=== PATIENT | male | born 1985 | race American Indian/Alaskan Native ===

== ENCOUNTER 2018-08-27 03:05 | Inpatient (IN) | payer MEDICAID ==
[2018-08-27 03:05] VITALS: BMI 24.2
--- NOTE | 2018-08-27 03:54 | ED PDOC ---
HPI: Psych/Substance Abuse Time Seen by Provider: 08/27/18 03:17 Chief Complaint (Nursing): Psychiatric Evaluation Chief Complaint (Provider): Psychiatric Evaluation History Per: Patient History/Exam Limitations: no limitations Onset/Duration Of Symptoms: Days (x1) Current Symptoms Are (Timing): Still Present Suicide/Self Injury Attempted (Context): None Additional Complaint(s): 32 year old male with pmHx of depression and bipolar disorder, arrives to ED via EMS for an evaluation after expressing suicidal ideation prior to arrival. Patient was discharged twice from [facility] within the last 12 hours, subsequently, states that he wanted to go to another hospital to speak to a different workers compensation analyst. He denies any specific plan at this time. PCP: none provided Past Medical History Reviewed: Historical Data, Nursing Documentation, Vital Signs Vital Signs: Last Vital Signs Temp 98 F 08/27/18 03:17 Pulse 69 08/27/18 03:17 Resp 16 08/27/18 03:17 BP 133/98 H 08/27/18 03:17 Pulse Ox 98 08/27/18 03:17 - Medical History PMH: Bipolar Disorder, Depression, Seizures Denies: Diabetes, Hepatitis, HIV, HTN, Chronic Kidney Disease, Sexually Transmitted Disease - Family History Family History: States: Unknown Family Hx - Immunization History Hx Tetanus Toxoid Vaccination: No Hx Influenza Vaccination: No Hx Pneumococcal Vaccination: No - Home Medications Home Medications: Ambulatory Orders Medication Instructions Recorded hydrOXYzine Pamoate [Vistaril] 25 mg PO BID PRN #30 cap 08/26/18 - Allergies Allergies/Adverse Reactions: Allergies Allergy/AdvReac Type Severity Reaction Status Date / Time No Known Allergies Allergy Verified 08/27/18 03:19 Review of Systems ROS Statement: Except As Marked, All Systems Reviewed And Found Negative Psych: Positive for: Depression, Suicidal ideation Physical Exam - Reviewed Nursing Documentation Reviewed: Yes Vital Signs Reviewed: Yes - Physical Exam Appears: Positive for: Well, Non-toxic, No Acute Distress Head Exam: Positive for: ATRAUMATIC, NORMAL INSPECTION, NORMOCEPHALIC Skin: Positive for: Normal Color Eye Exam: Positive for: Normal appearance ENT: Positive for: Normal ENT Inspection Neck: Positive for: Normal Cardiovascular/Chest: Positive for: Regular Rate, Rhythm Respiratory: Positive for: Normal Breath Sounds. Negative for: Respiratory Distress Neurologic/Psych: Positive for: Alert, Oriented, Mood/Affect (flat) - ECG O2 Sat by Pulse Oximetry: 98 (RA) Pulse Ox Interpretation: Normal Medical Decision Making Medical Decision Making: Initial Impression: 32 year old male with suicidal ideation in setting of known depression. Initial Plan: * Labs * Crisis evaluation * 1:1 OBS Patient evaluated by crisis and will be admitted Dx Depression Fair Patient s/o Dr Weldon to follow up on labs for medical clearance Scribe Attestation: Documented by Oneida Medel, acting as a scribe for Eddie Grier MD. Provider Scribe Attestation: All medical record entries made by the Scribe were at my direction and personally dictated by me. I have reviewed the chart and agree that the record accurately reflects my personal performance of the history, physical exam, medical decision making, and the department course for this patient. I have also personally directed, reviewed, and agree with the discharge instructions and disposition. Disposition - Clinical Impression Clinical Impression: Depression - Disposition Disposition: Transfer of Care Disposition Time: 07:00 Condition: FAIR Forms: [employer] (Nepali) Patient Signed Over To: Itzel Weldon
--- NOTE | 2018-08-27 07:04 | ED PDOC ---
- Laboratory Results Result Diagrams: 08/27/18 06:50 08/27/18 06:50 - ECG ECG Rhythm: Positive for: Normal QRS, Normal ST Segment, Sinus Rhythm (normal at 73bpm) O2 Sat by Pulse Oximetry: 98 (RA) Medical Decision Making Medical Decision Makin Patient care endorsed from Dr. Grier to this provider pending labs, CXR results, and reevaluation. [id number] CXR FINDINGS: LUNGS: No active pulmonary disease. PLEURA: No significant pleural effusion identified, no pneumothorax apparent. CARDIOVASCULAR: No aortic atherosclerotic calcification present. Normal cardiac size. No pulmonary vascular congestion. OSSEOUS STRUCTURES: No significant abnormalities. VISUALIZED UPPER ABDOMEN: Normal. OTHER FINDINGS: None. IMPRESSION: No acute cardiopulmonary disease appreciated. Scribe Attestation: Documented by Jimena Gerard, acting as a scribe for Yusef Weldon MD. Provider Scribe Attestation: All medical record entries made by the Scribe were at my direction and personal ly dictated by me. I have reviewed the chart and agree that the record accurately reflects my personal performance of the history, physical exam, medical decision making, and the department course for this patient. I have also personally directed, reviewed, and agree with the discharge instructions and disposition. Disposition Doctor Will See Patient In The: Hospital - Clinical Impression Clinical Impression: Depression, Bipolar 1 disorder - POA Present On Arrival: None - Disposition Disposition: Transfer of Care Disposition Time: 09:00 Condition: FAIR Forms: [employer] (Scottish)
--- NOTE | 2018-08-27 08:03 | RAD ---
Date of service: 08/27/2018 HISTORY: admit COMPARISON: No prior. FINDINGS: LUNGS: No active pulmonary disease. PLEURA: No significant pleural effusion identified, no pneumothorax apparent. CARDIOVASCULAR: No aortic atherosclerotic calcification present. Normal cardiac size. No pulmonary vascular congestion. OSSEOUS STRUCTURES: No significant abnormalities. VISUALIZED UPPER ABDOMEN: Normal. OTHER FINDINGS: None. IMPRESSION: No acute cardiopulmonary disease appreciated.
[2018-08-27 08:22] LABS: BASO % 0.6 % (0.0-2.0); EOS # 0.1 K/uL (0.0-0.7); EOS % 3.7 % (0.0-4.0); HEMOGLOBIN 13.3 g/dL (12.0-18.0); LYMPH # 1.9 K/uL (1.0-4.3); LYMPH % 53.3 % (20.0-40.0); MEAN CORPUSCULAR HEMOGLOBIN 32.4 pg (27.0-31.0); MEAN CORPUSCULAR HGB CONC 33.4 g/dL (33.0-37.0); MEAN PLATELET VOLUME 8.5 fl (7.2-11.7); MONO # 0.4 K/uL (0.0-0.8); MONO % 11.3 % (0.0-10.0); NEUT # 1.1 K/uL (1.8-7.0); NEUT % 31.1 % (50.0-75.0); NRBC % 0.1 % (0.0-0.0); RBC 4.11 Mil/uL (4.40-5.90); RED CELL DISTRIBUTION WIDTH 13.9 % (11.5-14.5); WHITE BLOOD COUNT 3.5 K/uL (4.8-10.8)
[2018-08-27 08:28] LABS: ALB/GLOB RATIO 1.3 (1.0-2.1); ALBUMIN 3.9 g/dL (3.5-5.0); ALT/SGPT 33 U/L (21-72); AST/SGOT 43 U/L (17-59); BLOOD UREA NITROGEN 14 mg/dl (9-20); CALCIUM 8.8 mg/dL (8.4-10.2); GFR NON-AFRICAN AMERICAN > 60
[2018-08-27 08:41] LABS: BARBITURATES, UR NEGATIVE (NEGATIVE); BENZODIAZEPINES, UR POSITIVE (NEGATIVE)
[2018-08-27 08:43] LABS: OPIATES, UR NEGATIVE (NEGATIVE); PHENCYCLIDINE, UR POSITIVE (NEGATIVE)
[2018-08-27 10:36] VITALS: O2SAT 99
[2018-08-27] MEDS ORDERED: DiphenhydrAMINE 50 mg/ml Inj IM PRN (11:46)
[2018-08-27] MEDS ORDERED: Alum-Mag Hydrox-Simethicone Susp (30 mL) PO PRN (11:46)
[2018-08-27] MEDS ORDERED: Magnesium Hydroxide Susp 30 ml UD PO PRN (11:46)
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
--- NOTE | 2018-08-27 15:46 | CP.PCM.CON ---
History of Present Illness - History of Present Illness History of Present Illness: 32 yo male with history of Bipolar DO and multiple substance abuse admitted to psyche unit because of suicidal ideation. Review of Systems - Review of Systems All systems: reviewed and no additional remarkable complaints except (aside from those mentioned above, 12 point system review were negative by me) Past Patient History - Infectious Disease Hx of Infectious Diseases: None - Tetanus Immunizations Tetanus Immunization: Unknown - Past Social History Smoking Status: Heavy Smoker > 10 Cigarettes Daily Chewing Tobacco Use: No Cigar Use: No Drugs: Cannabis, Cocaine, Opiates, Methamphetamine - CARDIAC Hx Cardiac Disorders: No - PULMONARY Hx Respiratory Disorders: No - NEUROLOGICAL Hx Neurological Disorder: No - HEENT Hx HEENT Problems: No - RENAL Hx Chronic Kidney Disease: No - ENDOCRINE/METABOLIC Hx Endocrine Disorders: No - HEMATOLOGICAL/ONCOLOGICAL Hx Blood Disorders: No - INTEGUMENTARY Hx Dermatological Problems: No - MUSCULOSKELETAL/RHEUMATOLOGICAL Hx Musculoskeletal Disorders: No - GASTROINTESTINAL Hx Gastrointestinal Disorders: No - GENITOURINARY/GYNECOLOGICAL Hx Genitourinary Disorders: No - PSYCHIATRIC Hx Psychophysiologic Disorder: Yes - SURGICAL HISTORY Hx Surgeries: Yes Other/Comment: RIGHT LEG / SURGERY - ANESTHESIA Hx Anesthesia: Yes Hx Anesthesia Reactions: No Meds Allergies/Adverse Reactions: Allergies Allergy/AdvReac Type Severity Reaction Status Date / Time No Known Allergies Allergy Verified 08/27/18 03:19 - Medications Medications: Current Medications Acetaminophen (Tylenol 325mg Tab) 650 mg PO Q4 PRN PRN Reason: Pain, moderate (4-7) Al Hydrox/Mg Hydrox/Simethicone (Maalox Plus 30 Ml) 30 ml PO Q4 PRN PRN Reason: Dyspepsia Diphenhydramine HCl (Benadryl) 50 mg IM Q6 PRN PRN Reason: Extrapyramidal S/S Unable PO Diphenhydramine HCl (Benadryl) 50 mg PO Q6 PRN PRN Reason: Extrapyramidal Symptoms Divalproex Sodium (Depakote Dr(*Bid*)) 500 mg PO BID LAVELL Gabapentin (Neurontin) 100 mg PO TID LAVELL Last Admin: 08/27/18 15:38 Dose: 100 mg Haloperidol (Haldol) 5 mg PO Q4 PRN PRN Reason: Agitation Haloperidol Lactate (Haldol) 5 mg IM Q4 PRN PRN Reason: Agitation, Unable to Take PO Lorazepam (Ativan) 2 mg IM Q4 PRN PRN Reason: Anxiety/Agitation,Unable PO Lorazepam (Ativan) 1 mg PO Q8 PRN PRN Reason: Anxiety/Agitation Magnesium Hydroxide (Milk Of Magnesia) 30 ml PO HS PRN PRN Reason: Constipation Quetiapine Fumarate (Seroquel) 50 mg PO BID LAVELL Quetiapine Fumarate (Seroquel) 100 mg PO HS LAVELL Physical Exam - Constitutional Appears: No Acute Distress - Head Exam Head Exam: ATRAUMATIC - Eye Exam Eye Exam: absent: Scleral icterus - ENT Exam ENT Exam: Mucous Membranes Moist - Neck Exam Neck exam: Negative for: Meningismus - Respiratory Exam Respiratory Exam: absent: Rales, Rhonchi, Wheezes, Respiratory Distress - Cardiovascular Exam Cardiovascular Exam: REGULAR RHYTHM, +S1, +S2 - GI/Abdominal Exam GI & Abdominal Exam: Soft. absent: Tenderness - Rectal Exam Rectal Exam: Deferred - Extremities Exam Extremities exam: Negative for: pedal edema - Back Exam Back exam: NORMAL INSPECTION - Neurological Exam Neurological exam: Alert, Oriented x3 - Psychiatric Exam Psychiatric exam: Normal Affect - Skin Skin Exam: Dry, Intact Results - Vital Signs Recent Vital Signs: Last Vital Signs Temp 98.2 F 08/27/18 10:33 Pulse 79 08/27/18 10:33 Resp 18 08/27/18 10:33 BP 141/91 H 08/27/18 10:33 Pulse Ox 99 08/27/18 10:33 - Labs Result Diagrams: 08/27/18 06:50 08/27/18 06:50 Labs: Laboratory Results - last 24 hr 08/27/18 08/27/18 08/27/18 06:50 06:50 07:37 WBC 3.5 L RBC 4.11 L Hgb 13.3 Hct 39.8 MCV 97.0 H MCH 32.4 H MCHC 33.4 RDW 13.9 Plt Count 205 MPV 8.5 Neut % (Auto) 31.1 L Lymph % (Auto) 53.3 H [place] % (Auto) 11.3 H Eos % (Auto) 3.7 Baso % (Auto) 0.6 Neut # (Auto) 1.1 L Lymph # (Auto) 1.9 [place] # (Auto) 0.4 Eos # (Auto) 0.1 Baso # (Auto) 0.0 Sodium 141 Potassium 3.7 Chloride 107 Carbon Dioxide 28 Anion Gap 10 BUN 14 Creatinine 0.9 Est GFR ( Amer) > 60 Est GFR (Non-Af Amer) > 60 Random Glucose 89 Calcium 8.8 Total Bilirubin 0.9 AST 43 ALT 33 Alkaline Phosphatase 68 Total Protein 6.9 Albumin 3.9 Globulin 3.0 Albumin/Globulin Ratio 1.3 Urine Opiates Screen Negative Urine Methadone Screen Negative Ur Barbiturates Screen Negative Ur Phencyclidine Scrn Positive H Ur Amphetamines Screen Positive H U Benzodiazepines Scrn Positive U Oth Cocaine Metabols Negative U Cannabinoids Screen Positive H Alcohol, Quantitative < 10 Assessment & Plan (1) Suicidal ideation Status: Acute Comment: psyche is managing
[2018-08-27] MEDS: Divalproex 500 mg DR(BID formulation) PO SCH (19:29)
--- NOTE | 2018-08-27 19:32 | PCM.BM ---
<Carter Cohn Praneeth - Last Filed: 08/27/18 19:29> Treatment Plan Problems - Problems identified on initial assessmt medication nonadherence Assessment reference: NA Status: Active high risk: injury Date Initiated: 08/27/18 Time Initiated: 17:00 Assessment reference: NA Status: Active Altered Thought Process Date Initiated: 08/27/18 Time Initiated: 17:00 Assessment reference: NA Status: Active Treatment assets and liabiliti Patient Assests: cooperative, educated, self-reliant, ADL independent, physically healthy, negotiates basic needs, cognitively intact Patient Liabilities: live alone, poor support system - Milieu Protocol Maintain good personal hygiene: every shift Encourage regular showers, every shift Remind patient to perform daily oral care, every shift Assist patient to perform ADL's Maintain personal safety: every shift Educate patient to report safety concerns to staff, every shift Monitor environment for contraband/sharps Medication safety: Monitor for expected outcome, potential side effects: every shift, Assess barriers to learning: every shift, Assess readiness for medication education: every shift Milieu Narrative: start seroquel 50mg bid and 100mg qhs increase gradually start depakote 500mg bid neurontin 100mg tid for anxiety motivational , group and supportive therapy Discharge/Continuing Care - Treatment Team Participation Patient/Family/SO Statement: start seroquel 50mg bid and 100mg qhs increase gradually start depakote 500mg bid neurontin 100mg tid for anxiety motivational , group and supportive therapy <Dulce Maria Srivastava - Last Filed: 08/31/18 14:20> Treatment assets and liabiliti Patient Assests: resourceful, self-reliant, ADL independent, physically healthy, negotiates basic needs Patient Liabilities: live alone ( Pt. reports residing with mother prior to admission. Pt. evasive and irritable when asked if he is welcome to return. Pt. has hx of multiple periods of homelessness, as per medical records.), poor support system (Pt. reports poor family/social supports. Pt. reports having a circumstantially supportive relationship with aunt. Pt. reports having 6 children with who pt. denies having a relationship/communication.), relationship conflicts (Pt. reports discord with cousin, explaining he cant mind his own sh*t and is always in mine. ), substance abuse (Pt. reports hx of/current illicit substance abuse (ecstasy-weekends/recreationally, PCP- weekends/recreationally, ETOH-2-3x/week, cannabis-daily). Pt. presents as a poor historian and evasive when providing collateral regarding polysubstance abuse hx and tx.), legal issue ( Pt. reports being incarcerated for about 7 years in total. Pt. denies outstanding legal issues.) Family Contact Family involvement: Famliy/SO not involved Family contact: Patient declines to allow family contact at present - Goals for Treatment Patient goals for treatment: Patient to continue stabilization on 3NP through medication management and group/supportive therapy to address sxs of psychosis (paranoia disorganized thought process, social withdrawal, internal preoccupation), and eliminate SI/HI. Patient to be encouraged to attend groups regularly to promote self-awareness, sobriety, and improve insight, compliance, coping skills and self-esteem. Patient to be provided with referral for appropriate level of aftercare to reduce risk of future hospitalizations and ensure safety in the community. Pt. presented as irritable and required significant engagement from tx team to participate in discussion regarding tx goals. Pt. identified tx goal as being kept away from him cousin. Discharge/Continuing Care - Education Needs Education Needs: Patient Medication, Patient Diagnosis/Disease Process, Patient Coping Skills, Patient Anger Management skills, Patient Community resources, Patient Aftercare Safety Plan - Discharge Discharge Criteria: Tolerates medication w/o severe side effects, Free of Suicidal thoughts, Free of Homicidal thoughts, Free of paranoid thoughts, Free of agitation, Normal sleep pattern, No longer exhibiting s/s of withdrawal, Reduction of target symptoms Discharge to:: With Family, Care Home - Treatment Team Participation Patient/Family/SO Statement: 08/31/18 14:23 Patient attended tx team on 08/30 to discuss progress on 3NP and aftercare. Pt. continued to present with sxs of psychosis as exhibited by paranoia, internal preoccupation, and delusional thought process. Pt. continued to express belief that cousin is in a relationship with pts childrens mother, prohibiting pt. from seeing his children. Pt. reported I feel like doing something to him and his kids. Why does he get to see his kids and I dont? Speech: pressured. Pt. presented as disorganized, with loosened associations, and ideas of reference. Pt. reported being able to hear peoples conversations being had in different building/different floors and hearing peoples thoughts when under the influence of ecstasy/PCP. Insight/Coping skills/Judgment grossly impaired. Pt. presented as irritable and required significant engagement from tx team to participate in discussion regarding tx goals. Pt. identified tx goal as being kept away from him cousin. Recommended medication regimen discussed at length. Pt. agreeable. Discussed with Family/SO: No Was Patient/Family/SO present at Treatment Team Meeting: Yes <Brenton Smith - Last Filed: 08/31/18 14:49> - Diagnosis (1) Bipolar 1 disorder Status: Acute Interventions: pharmacotheray/ mood stabilizer 08/31/18 14:47 (2) Stimulant abuse Status: Acute Interventions: 08/31/18 14:48 motivational therapy
--- NOTE | 2018-08-27 20:44 | CARD ---
APPROVED REPORT Date of service: 08/27/2018 EKG Measurement Heart [id number] MD [id number] <Conclusion> Normal sinus rhythm Left ventricular hypertrophy with QRS widening Abnormal ECG
[2018-08-28 08:51] LABS: T4 5.24 ug/dl (5.5-11.0)
--- NOTE | 2018-08-28 10:25 | PCM.PYCHPN ---
Psychiatric Progress Note - Psychiatric Progress Note Patient seen today, length of contact: Pt evaluated, case discussed w/ team, chart reviewed Patient Chief Complaint: "I'm having thoughts of hurting my nephew." Problems Identified/Issues Discussed: Patient continues to report feeling depressed/anxious w/ ideations to harm his nephew w/o any specific plan. He denies acute ideation to harm himself. He reports feeling fatigued and has sleep disturbances. No adverse effects to medications reported. Medication Change: No Medical Record Reviewed: Yes Consults ordered or reviewed: Medicine consult Mental Status Examination - Cognitive Function Orientation: Person, Place, Situation, Time Memory: Intact Fund of Knowledge: [facility] Decription of patient's judgement and insights: Poor I/J - Mood Mood: Depressed, Anxious - Affect Affect: Constricted - Formal Thought Process Formal Thought Process: Paranoia Psychotic Thoughts and Behaviors: Denies acute AH/VH - Suicidal Ideation Suicidal Ideation: No - Homicidal Ideation Homicidal Ideation: Yes Plan: Ideation to harm others Goal/Treatment Plan - Goal/Treatment Plan Need for Continued Stay: Remain at risks for inpatient hospitalization, Severe depression anxiety, Discharge may exacerbated symptoms Progress Toward Problem(s) and Goals/Treatment Plan: Substance induced psychotic disorder; Substance induced mood disorder vs Bipolar I disorder; Amphetamine abuse; PCP abuse; Cannabis abuse -Continue Depakote 500 mg PO BID -Continue Neurontin 100 mg PO TID -Continue Seroquel 50 mg PO BID/ 100 mg PO HS -Medicine consult -Individual and group therapy -Psychoeducation -Disposition planning
[2018-08-28] MEDS: Divalproex 500 mg DR(BID formulation) PO SCH ×3 (14:12→18:15)
--- NOTE | 2018-08-29 09:53 | PCM.PYCHPN ---
Psychiatric Progress Note - Psychiatric Progress Note Patient seen today, length of contact: Pt evaluated, case discussed w/ team, chart reviewed Patient Chief Complaint: "I'm having thoughts of hurting my cousin." Problems Identified/Issues Discussed: Patient continues to report feeling depressed w/ homicidal ideation towards his cousin because he feels like his cousin is trying to manipulate him and the mother of his child. He reports feeling fatigued during the day and thinks it may be due to the seroquel. He denies acute AH/VH/SI. Medication Change: Yes (Increase Seroquel and change to HS) Medical Record Reviewed: Yes Consults ordered or reviewed: Medicine consult Mental Status Examination - Cognitive Function Orientation: Person, Place, Situation, Time Memory: Intact Fund of Knowledge: [facility] Decription of patient's judgement and insights: Poor I/J - Mood Mood: Depressed, Anxious - Affect Affect: Constricted - Formal Thought Process Formal Thought Process: Paranoia Psychotic Thoughts and Behaviors: +Paranoia - Suicidal Ideation Suicidal Ideation: No - Homicidal Ideation Homicidal Ideation: Yes Goal/Treatment Plan - Goal/Treatment Plan Need for Continued Stay: Remain at risks for inpatient hospitalization, Severe depression anxiety, Discharge may exacerbated symptoms Progress Toward Problem(s) and Goals/Treatment Plan: Substance induced psychotic disorder; Substance induced mood disorder vs Bipolar I disorder; Amphetamine abuse; PCP abuse; Cannabis abuse -Continue Depakote 500 mg PO BID -Continue Neurontin 100 mg PO TID -Increase Seroquel to 250 mg PO HS -Medicine consult -Individual and group therapy -Psychoeducation -Disposition planning
[2018-08-29] MEDS: Divalproex 500 mg DR(BID formulation) PO SCH ×2 (12:55→17:32)
--- NOTE | 2018-08-30 15:19 | PCM.PYCHPN ---
Psychiatric Progress Note - Psychiatric Progress Note Patient seen today, length of contact: Pt evaluated, case discussed w/ team, chart reviewed Patient Chief Complaint: I still hear my cousin with my and I want to hurt him Problems Identified/Issues Discussed: pt evaluated with treatment team, floridly psychotic, disorganized speech, expressing delusions of persecution towards family members continues to report non command auditory hallucinations and expressing homicidal threats towards his cousin, discussed with pt increasing dose of depakote and starting risperidone pt denied command hallucinations, denied active thoughts of self harm on the unit Medical Problems: about three inpatient hospitalizations, history of non compliance DSM 5 Symptoms Update: bipolar disorder pcp/ amphetamine induced psychosis Medication Change: Yes (start risperidone ) Medical Record Reviewed: Yes Mental Status Examination - Cognitive Function Orientation: Person, Place, Situation, Time Memory: Intact Attention: Poor Concentration: Poor Association: Loose Fund of Knowledge: Poor - Mood Mood: Depressed, Anxious - Affect Affect: Constricted Additional comments: angry - Speech Speech: Pressured - Formal Thought Process Formal Thought Process: Hallucinations, Delusions, Paranoia - Suicidal Ideation Suicidal Ideation: No - Homicidal Ideation Homicidal Ideation: Yes Goal/Treatment Plan - Goal/Treatment Plan Need for Continued Stay: Remain at risks for inpatient hospitalization, Severe depression anxiety, Discharge may exacerbated symptoms Progress Toward Problem(s) and Goals/Treatment Plan: risperidone 3mg daily increase depakote 1500mg daily neurontin 100mg tid for anxiety motivational , group and supportive therapy
[2018-08-30] MEDS: Divalproex 500 mg DR(BID formulation) PO SCH (21:04)
[2018-08-31] MEDS: Divalproex 500 mg DR(BID formulation) PO SCH ×2 (10:17→21:08)
--- NOTE | 2018-08-31 14:58 | PCM.PYCHPN ---
Psychiatric Progress Note - Psychiatric Progress Note Patient seen today, length of contact: Pt evaluated, case discussed w/ team, chart reviewed Patient Chief Complaint: I try to stay in my room so I do not get angry at anybody Problems Identified/Issues Discussed: pt evaluated seen in bed , angry mood , irritable affect, pt continues to report feeling angry because of the infidelity of his cousin with his girlfriend, reported partial clearing of the auditory hallucinations, thought process continues to be tangential with over productive speech, discussed increasing risperidone no reported side effects pt denied command hallucinations, denied active thoughts of self harm on the unit Medical Problems: about three inpatient hospitalizations, history of non compliance Medication Change: Yes (increase risperidone ) Medical Record Reviewed: Yes Mental Status Examination - Cognitive Function Orientation: Person, Place, Situation, Time Memory: Intact Attention: Poor Concentration: Poor Association: Loose Fund of Knowledge: Poor - Mood Mood: Depressed, Anxious - Affect Affect: Constricted - Speech Speech: Pressured - Formal Thought Process Formal Thought Process: Hallucinations, Delusions, Paranoia - Suicidal Ideation Suicidal Ideation: No - Homicidal Ideation Homicidal Ideation: Yes Goal/Treatment Plan - Goal/Treatment Plan Need for Continued Stay: Remain at risks for inpatient hospitalization, Severe depression anxiety, Discharge may exacerbated symptoms Progress Toward Problem(s) and Goals/Treatment Plan: risperidone increase 4 mg daily depakote 1500mg daily , follow up on depakote level neurontin 100mg tid for anxiety motivational , group and supportive therapy
[2018-09-01] MEDS: Divalproex 500 mg DR(BID formulation) PO SCH ×2 (09:56→21:01)
--- NOTE | 2018-09-01 14:49 | PCM.PYCHPN ---
Psychiatric Progress Note - Psychiatric Progress Note Patient seen today, length of contact: Pt evaluated, case discussed w/ team, chart reviewed Patient Chief Complaint: I need help so I would not hurt anybody Problems Identified/Issues Discussed: pt evaluated seen in bed ,speech less pressured, thought process circumstantial, at times not goal directed continues to express anger towards his cousin and girlfriend , discussed with pt the need to start anger management therapy, also discussed the need for substance rehab program, pt reported partial clearing of the auditory hallucinations, pt denied command hallucinations, denied active thoughts of self harm on the unit Medical Problems: about three inpatient hospitalizations, history of non compliance DSM 5 Symptoms Update: schizoaffective disorder amphetamine abuse PCP abuse Medication Change: Yes (increase risperidone ) Medical Record Reviewed: Yes Mental Status Examination - Cognitive Function Orientation: Person, Place, Situation, Time Memory: Intact Attention: Poor Concentration: Poor Association: Loose Fund of Knowledge: Poor - Mood Mood: Depressed, Anxious - Affect Affect: Constricted - Speech Speech: Pressured - Formal Thought Process Formal Thought Process: Hallucinations, Delusions, Paranoia - Suicidal Ideation Suicidal Ideation: No - Homicidal Ideation Homicidal Ideation: Yes Goal/Treatment Plan - Goal/Treatment Plan Need for Continued Stay: Remain at risks for inpatient hospitalization, Severe depression anxiety, Discharge may exacerbated symptoms Progress Toward Problem(s) and Goals/Treatment Plan: increase risperidone increase 2 mg daily and 3mg qhs depakote 1500mg daily , follow up on depakote level neurontin 100mg tid for anxiety motivational , group and supportive therapy
[2018-09-02] MEDS: Divalproex 500 mg DR(BID formulation) PO SCH (08:53)
--- NOTE | 2018-09-02 15:40 | PCM.PYCHPN ---
Psychiatric Progress Note - Psychiatric Progress Note Patient seen today, length of contact: Pt evaluated, case discussed w/ team, chart reviewed Patient Chief Complaint: I am trying to stay away from trouble Problems Identified/Issues Discussed: pt evaluated , , more engaged in treatment , seen attending groups, speech less pressured , thought process continues to be circumstantial, pt reported partial clearing of the auditory hallucinations, continues to have mood swings, denied side effects of medications pt denied command hallucinations, denied active thoughts of self harm on the unit Medical Problems: about three inpatient hospitalizations, history of non compliance Medication Change: Yes (decrease depakote ) Medical Record Reviewed: Yes Mental Status Examination - Cognitive Function Orientation: Person, Place, Situation, Time Memory: Intact Attention: WNL Concentration: Poor Association: Loose Fund of Knowledge: Poor Decription of patient's judgement and insights: poor insight and judgment - Mood Mood: Anxious - Affect Affect: Constricted - Speech Speech: Pressured - Formal Thought Process Formal Thought Process: Hallucinations, Delusions, Paranoia - Suicidal Ideation Suicidal Ideation: No - Homicidal Ideation Homicidal Ideation: No Goal/Treatment Plan - Goal/Treatment Plan Need for Continued Stay: Remain at risks for inpatient hospitalization, Severe depression anxiety, Discharge may exacerbated symptoms Progress Toward Problem(s) and Goals/Treatment Plan: increase risperidone 2 mg daily and 3mg qhs decrease depakote 1000mg daily , depakote level 119 neurontin 100mg tid for anxiety motivational , group and supportive therapy
[2018-09-02] MEDS: Divalproex 250 mg DR(BID formulation) PO SCH (21:04)
[2018-09-03] MEDS: Divalproex 250 mg DR(BID formulation) PO SCH ×2 (09:43→21:08)
--- NOTE | 2018-09-03 15:42 | PCM.PYCHPN ---
Psychiatric Progress Note - Psychiatric Progress Note Patient seen today, length of contact: Pt evaluated, case discussed w/ team, chart reviewed Patient Chief Complaint: I want to leave Problems Identified/Issues Discussed: pt evaluated , , edgy and irritable, requesting to be discharged, pt continues to have disorganized speech ad thought process, continues to report auditory hallucinations , pt has limited insight into his illness , signed 48 hour notice Medical Problems: about three inpatient hospitalizations, history of non compliance DSM 5 Symptoms Update: schizoaffective disorder PCP use disorder Medication Change: No Medical Record Reviewed: Yes Mental Status Examination - Cognitive Function Orientation: Person, Place, Situation, Time Memory: Intact Attention: WNL Concentration: Poor Association: Loose Fund of Knowledge: Poor Decription of patient's judgement and insights: poor insight and judgment - Mood Mood: Anxious - Affect Affect: Constricted - Speech Speech: Pressured - Formal Thought Process Formal Thought Process: Hallucinations, Delusions, Paranoia - Suicidal Ideation Suicidal Ideation: No - Homicidal Ideation Homicidal Ideation: No Goal/Treatment Plan - Goal/Treatment Plan Need for Continued Stay: Remain at risks for inpatient hospitalization, Severe depression anxiety, Discharge may exacerbated symptoms Progress Toward Problem(s) and Goals/Treatment Plan: pt continues to be disorganized , psychotic internally preoccupied , signed 48 hour notice requesting to be discharged, no insight into illness , pt will be screened for involuntary admission risperidone 2 mg daily and 3mg qhs depakote 1000mg daily , qhs neurontin 100mg tid for anxiety motivational , group and supportive therapy
[2018-09-03 18:45] LABS: SQUAMOUS EPITHIAL < 1 /hpf (0-5); URINE BILIRUBIN NEGATIVE (NEGATIVE); URINE BLOOD NEGATIVE (NEGATIVE); URINE CLARITY CLEAR (Clear); URINE COLOR YELLOW (YELLOW); URINE GLUCOSE (UA) NEG (NEGATIVE); URINE LEUKOCYTE ESTERASE NEG Leu/uL (Negative); URINE PROTEIN NEGATIVE (NEGATIVE); URINE UROBILINOGEN 0.2-1.0 mg/dL (0.2-1.0)
[2018-09-04] MEDS: Divalproex 250 mg DR(BID formulation) PO SCH (09:16)
[2018-09-04 10:16] VITALS: TEMP 97.2
--- NOTE | 2018-09-04 15:50 | PCM.PYCHPN ---
Psychiatric Progress Note - Psychiatric Progress Note Patient seen today, length of contact: Pt evaluated, case discussed w/ team, chart reviewed Patient Chief Complaint: pt has remained very disorganized and cant keep his conversation and internally preoccupied and remains with poor insight and poor judgement and signed 48 hr letter and wants to leave the hospital. Medication Change: No Medical Record Reviewed: Yes Mental Status Examination - Cognitive Function Orientation: Person, Place, Situation, Time Memory: Intact Attention: WNL Concentration: Poor Association: Loose Fund of Knowledge: Poor - Mood Mood: Anxious - Affect Affect: Constricted - Speech Speech: Pressured - Formal Thought Process Formal Thought Process: Hallucinations, Delusions, Paranoia - Suicidal Ideation Suicidal Ideation: No - Homicidal Ideation Homicidal Ideation: No Goal/Treatment Plan - Goal/Treatment Plan Need for Continued Stay: Remain at risks for inpatient hospitalization, Severe depression anxiety, Discharge may exacerbated symptoms Progress Toward Problem(s) and Goals/Treatment Plan: pt has remained very disorganized ,unable to take care of self,still hallucination and remains a threat to self and others and need inpt psych stabilization.pt can not be d/c home and as he is not willing to stay here longer ,will refer him again to [facility] for rescreening for involuntary admission to [facility].
[2018-09-04 16:41] VITALS: BP 122/90; PULSE 102; RESP 20
[2018-09-04] MEDS ORDERED: Divalproex 500 mg DR(BID formulation) PO SCH (22:00)
[2018-09-05] MEDS: Divalproex 250 mg DR(BID formulation) PO SCH (10:00)
--- NOTE | 2018-09-05 11:47 | PCM.PYCHPN ---
Psychiatric Progress Note - Psychiatric Progress Note Patient seen today, length of contact: Pt evaluated, case discussed w/ team, chart reviewed Patient Chief Complaint: pt has been less irritible and less anxious and denies any hallucinations but still with limited insight regarding his h/o noncompliance with meds and substance abuse and still requesting d/c based on 48 hr notice which expires today and was screened twice by [facility] and found not commitable and will be d/c home against medical advised and informed about all the risks of AMA d/c and pt signed AMA d/c .pt denies suicidal ideation and no agitation and no psychosis .no sedation noted tiday. Medication Change: No Medical Record Reviewed: Yes Mental Status Examination - Cognitive Function Orientation: Person, Place, Situation, Time Memory: Intact Attention: Poor Concentration: Poor Association: WNL Fund of Knowledge: WNL - Mood Mood: Anxious - Affect Affect: Other - Speech Speech: Appropriate - Formal Thought Process Formal Thought Process: No Impairment - Suicidal Ideation Suicidal Ideation: No - Homicidal Ideation Homicidal Ideation: No Goal/Treatment Plan - Goal/Treatment Plan Need for Continued Stay: Remain at risks for inpatient hospitalization, Severe depression anxiety, Discharge may exacerbated symptoms Progress Toward Problem(s) and Goals/Treatment Plan: pt will be d/c AMA today and will follow up at [facility] and [facility] and given all his prescriptions and advised to comply with meds and appt and stay abstinent of ilicit drug abuse.
== END 2018-09-05 15:45 | disposition left against medical advice (07) | DRG 770 ==
LOC: H.ER 03:05 → H.ERHOLD 09:12 → H.PSYCH 10:46
PROVIDERS: ADMIT Psychiatry & Neurology Psychiatry; ATTEND Psychiatry & Neurology Psychiatry
PROC: HZ52ZZZ Individual Psychotherapy for Substance Abuse Treatment, Cognitive-Behavioral (ICD-10-PCS; principal; 2018-08-27)
PROC: GZHZZZZ Group Psychotherapy (ICD-10-PCS; 2018-08-27)
PROC: GZ58ZZZ Individual Psychotherapy, Cognitive-Behavioral (ICD-10-PCS; 2018-08-27)
DX: F15.159 Other stimulant abuse with stimulant-induced psychotic disorder, unspecified (principal); R45.851 Suicidal ideations; F25.9 Schizoaffective disorder, unspecified; R45.850 Homicidal ideations; F16.10 Hallucinogen abuse, uncomplicated; F12.10 Cannabis abuse, uncomplicated; F15.10 Other stimulant abuse, uncomplicated; F31.9 Bipolar disorder, unspecified; F41.9 Anxiety disorder, unspecified; Z91.14 Patient's other noncompliance with medication regimen; Z91.19 Patient's noncompliance with other medical treatment and regimen; F17.210 Nicotine dependence, cigarettes, uncomplicated